=== PATIENT | female | born 1960 | race Caucasian/White ===

== ENCOUNTER 2020-12-25 08:03 | Day surgery (SDC) | payer OTHER ==
[~2020-12-25 08:03] MED LIST: LIDOCAINE HCL 2% (50ML VIAL) INF ONE
[2020-12-25] MEDS ORDERED: MIDAZOLAM HCL 2 MG/2 ML SINGLE DOSE VIAL ONE (10:28)
[2020-12-25] MEDS ORDERED: PROPOFOL 20 ML ONE (10:35)
[2020-12-25] MEDS ORDERED: LIDOCAINE HCL 2% (50ML VIAL) INF ONE (10:38)
[2020-12-25] MEDS ORDERED: ONDANSETRON 4 MG/2 ML VIAL ONE (10:46)
[2020-12-25] MEDS ORDERED: DEXAMETHASONE SOD PHOSPHATE 4 MG/1 ML VIAL ONE (10:46)
[2020-12-25] MEDS ORDERED: ONDANSETRON *ODT* 4 MG TABLET ONE (12:13)
== END 2020-12-25 12:30 | disposition home or self-care (01) ==
LOC: FASU 08:03
PROVIDERS: ATTEND Orthopaedic Surgery Hand Surgery
PROC: 0LN70ZZ Release Right Hand Tendon, Open Approach (ICD-10-PCS; principal; 2020-12-25 10:44)
DX: M65.311 Trigger thumb, right thumb (principal)
CPT/HCPCS: Q0162